=== PATIENT | female | born 1970 | race Caucasian/White ===

== ENCOUNTER 2020-09-17 15:04 | Outpatient (CLI) | payer OTHER, SELFPAY ==
--- NOTE | ~2020-09-17 | MM_ITS ---
EXAMINATION: MM screening [facility] BI w dony HISTORY: Screening TECHNIQUE: Craniocaudal and mediolateral oblique 3-D tomosynthesis images were obtained and synthetic 2-D images were generated. CAD analysis was submitted and interpreted. COMPARISON: Comparison to multiple prior studies sequentially, with oldest reviewed study dated 06/27. BREAST PARENCHYMAL COMPOSITION: There are scattered areas of fibroglandular density. FINDINGS: There is no evidence of suspicious mass, calcification, or architectural distortion to sugg est malignancy in either breast. There has been no suspicious interval change. IMPRESSION: 1. No mammographic evidence of malignancy. 2. Recommend routine screening mammography in one year. BI-RADS Category 1: Negative Reviewed, dictated and finalized at location A. 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
== END 2020-09-17 15:05 | disposition home or self-care (01) ==
LOC: ANHIMG 15:48
PROVIDERS: PCP Obstetrics & Gynecology; Visit Provider Obstetrics & Gynecology
DX: Z12.31 Encounter for screening mammogram for malignant neoplasm of breast (principal)
CPT/HCPCS: 77063; 77067

== ENCOUNTER 2021-10-03 15:47 | Outpatient (CLI) | payer OTHER, SELFPAY ==
--- NOTE | ~2021-10-03 | MM_ITS ---
EXAMINATION: MM screening [facility] BI w dony HISTORY: Screening TECHNIQUE: Craniocaudal and mediolateral oblique 3-D tomosynthesis images were obtained and synthetic 2-D images were generated. CAD analysis was submitted and interpreted. COMPARISON: Comparison to multiple prior studies sequentially, with oldest reviewed study dated 07/27. BREAST PARENCHYMAL COMPOSITION: Breast composed of scattered areas of fibroglandular density FINDINGS: There is no evidence of suspicious mass, calcification, or architectural distortion to sugg est malignancy in either breast. There has been no suspicious interval change. IMPRESSION: 1. No mammographic evidence of malignancy. 2. Recommend routine screening mammography in one year. BI-RADS Category 1: Negative Reviewed, dictated and finalized at location A. 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
== END 2021-10-03 15:48 | disposition home or self-care (01) ==
LOC: ANHIMG 15:49
PROVIDERS: PCP Obstetrics & Gynecology; Visit Provider Family Medicine
DX: Z12.31 Encounter for screening mammogram for malignant neoplasm of breast (principal)
CPT/HCPCS: 77063; 77067

== ENCOUNTER → 2022-10-20 15:33 | Outpatient (CLI) | payer OTHER, SELFPAY ==
--- NOTE | ~2022-10-20 | US_ITS ---
US axilla LT 10/20/2022 15:53 Indication: Palpable left axillary nodule Procedure: High-resolution Limited ultrasound of the left axilla Comparison: No prior studies for comparison. Findings: There is a normal appearing lymph node in the area of palpable concern measuring 1.3 cm wit hin normal fatty hilum. No other discrete solid or cystic masses. Impression: 1: Normal lymph node in the left axilla in the area of palpable concern. Reviewed, dictated and finalized at location B. CAID ELIGIBILITY SPECIALIST Impression: 1: Normal lymph node in the left axilla in the area of palpable concern.
== END ==
PROVIDERS: PCP Family Medicine; Visit Provider Family Medicine
DX: R59.1 Generalized enlarged lymph nodes (principal)
CPT/HCPCS: 76882

== ENCOUNTER 2022-11-14 16:24 | Outpatient (CLI) | payer OTHER, SELFPAY ==
--- NOTE | ~2022-11-14 | MM_ITS ---
EXAMINATION: MM screening [facility] BI w dony HISTORY: Screening TECHNIQUE: Craniocaudal and mediolateral oblique 3-D tomosynthesis images were obtained and synthetic 2-D images were generated. CAD analysis was submitted and interpreted. COMPARISON: Comparison to multiple prior studies sequentially, with oldest reviewed study dated 07/27. BREAST PARENCHYMAL COMPOSITION: There are scattered areas of fibroglandular density. FINDINGS: There is no evidence of suspicious mass, calcification, or architectural distortion to sugg est malignancy in either breast. There has been no suspicious interval change. IMPRESSION: 1. No mammographic evidence of malignancy. 2. Recommend routine screening mammography in one year. BI-RADS Category 1: Negative Reviewed, dictated and finalized at location A.
== END 2022-11-14 16:25 | disposition home or self-care (01) ==
LOC: ANHIMG 16:27
PROVIDERS: PCP Family Medicine; Visit Provider Obstetrics & Gynecology
DX: Z12.31 Encounter for screening mammogram for malignant neoplasm of breast (principal)
CPT/HCPCS: 77063; 77067

== ENCOUNTER 2024-01-03 16:30 | Outpatient (CLI) | payer OTHER, SELFPAY ==
--- NOTE | ~2024-01-03 | MM_ITS ---
EXAMINATION: MM screening [facility] BI w dony HISTORY: Screening mammogram TECHNIQUE: Craniocaudal and mediolateral oblique 3-D tomosynthesis images were obtained and synthetic 2-D images were generated. CAD analysis was submitted and interpreted. COMPARISON: 11/14/2022, 10/03/2021 bilateral screening mammogram examinations BREAST PARENCHYMAL COMPOSITION: There are scattered areas of fibroglandular density. FINDINGS: There is no evidence of suspicious mass, calcification, or architectural distortion to sugg est malignancy in either breast. There has been no suspicious interval change. IMPRESSION: 1. No mammographic evidence of malignancy. 2. Recommend routine screening mammography in one year. BI-RADS Category 1: Negative Reviewed, dictated and finalized at location B.
== END 2024-01-03 16:31 | disposition home or self-care (01) ==
PROVIDERS: PCP Family Medicine; Visit Provider Obstetrics & Gynecology
DX: Z12.31 Encounter for screening mammogram for malignant neoplasm of breast (principal)
CPT/HCPCS: 77063; 77067

== ENCOUNTER 2024-02-16 11:06 | Outpatient (CLI) | payer OTHER, SELFPAY ==
--- NOTE | ~2024-02-16 | XR_ITS ---
XR cervical spine 4-5V DATE: 02/16/2024 11:23 INDICATION: Neck pain TECHNIQUE: Standing AP, open-mouth, lateral and swimmer views COMPARISON: None FINDINGS: Status post anterior and interbody surgical fusion at C5-C7. There is moderately severe degenerative disease and minimal retrolisthesis at C4-5. Bilateral uncover tebral joint spurring at C4-5. C2-3 and C3-4 interspaces appear relatively well preserved. C1 and C2 are normally aligned and the odontoid process is intact. No fracture or dislocation or lock ed facet or prevertebral soft tissue swelling is noted. IMPRESSION: Status post anterior and interbody surgical fusion at C5 and C7 Moderately severe degenerative disc disease, posterior spurring, minimal retrolisthesis and bilateral uncovertebral joint spurring at C4-5 Reviewed, dictated and finalized at location A. IMPRESSION: Status post anterior and interbody surgical fusion at C5 and C7 Moderately severe degenerative disc disease, posterior spurring, minimal retrol isthesis and bilateral uncovertebral joint spurring at C4-5
== END 2024-02-16 11:07 ==
DX: M50.30 Other cervical disc degeneration, unspecified cervical region (principal); Z98.1 Arthrodesis status
CPT/HCPCS: 72050

== ENCOUNTER 2025-01-06 16:13 | Outpatient (CLI) | payer OTHER, SELFPAY ==
--- NOTE | ~2025-01-06 | MM_ITS ---
EXAMINATION: MM screening nadine BI w odny HISTORY: Screening TECHNIQUE: Craniocaudal and mediolateral oblique 3-D tomosynthesis images were obtained and synthetic 2-D images were generated. CAD analysis was submitted and interpreted. COMPARISON: Comparison to multiple prior studies sequentially, with oldest reviewed study dated 10/2018. BREAST PARENCHYMAL COMPOSITION: Not dense: There are scattered areas of fibroglandular density. FINDINGS: There is no evidence of suspicious mass, calcification, or architectural distortion to sugg est malignancy in either breast. There has been no suspicious interval change. IMPRESSION: 1. No mammographic evidence of malignancy. 2. Recommend routine screening mammography in one year. BI-RADS Category 1: Negative Reviewed, dictated and finalized at location A.
--- OUTSIDE RECORDS SUMMARY | 2025-01-06 16:16 | XMS_ITS | Clinical Summary ---
Author Organization [facility] Address [facility] [place] [address] Care Team Providers Care Vascular Ultrasound Technologist Name Role Phone Melba Dover MD Primary Care Provider Allergies Active Allergy Reactions Criticality Noted Date Comments Atorvastatin Myalgias 02/04/2016 Morphine Nausea and Vomiting 10/16/2019 Niacin Rash Low 10/16/2019 Penicillins Other (see comment) 10/16/2019 In childhood Medications multi vitamin/mineral s tablet Take 1 tablet by mouth daily. Active metoprolol tartrate 25 MG tablet Take 0.5 tablets (12.5 mg total) by mouth 2 (two) times daily. Active magnesium oxide 400 (241.3 Mg) MG tablet Take 1 tablet (400 mg total) by mouth as needed. Active Active Problems Problem Noted Date Diagnosed Date Family history of colon cancer in father 023 Overview (12/07/2022): Added automatically from request for surgery [id number] History of colon polyps 12/07/2022 Overview (12/07/2022): Added automatically from request for surgery [id number] Family History Medical History Relation Comments Cancer Father colon Anesthesia problems Mother n/v Diabetes Mother Heart Disease Mother Relation Status Comments Father Mother Social History Tobacco Use Types Packs/Day Years Used Date Smoking Tobacco: Never Smokeless Tobacco: Never Alcohol Use Standard Drinks/Week Comments Yes 4 (1 standard drink = 0.6 oz pur e alcohol) Humiliation, Afraid, Rape, and Kick questionnair e Answer Date Recorded Fear of Current or Ex-Partner Patient declined 0 10/23/2019 Emotionally Abused Patient declined 10/23/2019 Physically Abused Patient declined 10/23/2019 Sexually Abused Patient declined 10/23/2019 Social Connection and Isolation Panel [NHANES] A nswer Date Recorded Frequency of Communication with Friends and Fami ly Patient declined 10/23/2019 Frequency of Social Gatherings with Friends and Family Patient declined 10/23/2019 Attends Orthodoxy Services Patient declined 09/28 Active Member of Clubs or Organizations Patient declined 10/23/2019 Attends Club or Organization Meetings Patient de clined 10/23/2019 Marital Status Patient declined 10/23/2019 Overall Financial Resource Strain (CARDIA) Answe r Date Recorded Difficulty of Paying Living Expenses Not hard at all 10/23/2019 [facility] Occup[facility] ional [facility] - Occupational Stress Questionnaire Answer Date Recorded Feeling of Stress Patient declined 10/23/2019 Exercise Vital Sign Answer Date Recorde d Days of Exercise per Week Patient declined 10/23 Minutes of Exercise per Session Patient declined 10/23/2019 Hunger Vital Sign Answer Date Recorded Worried About Running Out of Food in the Last Ye ar Never true 10/23/2019 Ran Out of Food in the Last Year Never true 10/23/2019 PRAPARE - Transportation Answer Date Re corded Lack of Transportation (Medical) Patient decline d 10/23/2019 Lack of Transportation (Non-Medical) Patient dec lined 10/23/2019 Comments No Sex and Gender Information Value Date Recorded Sex Assigned at Not on file Legal Sex Female 7:28 PM CDT Gender Identity Female 12/19/2021 8:46 AM CDT Sexual Orientation Not on file Last Filed Vital Signs Vital Sign Reading Time Taken Comments Blood Pressure 125/81 01/09/2023 9:57 AM CDT Pulse 49 01/09/2023 9:57 AM CDT Temperature 36.7 C (98 F) 01/09/2023 9:28 AM CDT Respiratory Rate 16 01/09/2023 9:57 AM CDT Oxygen Saturation 96% 01/09/2023 9:57 AM CDT Inhaled Oxygen Concentration - - Weight 77.1 kg (170 lb) 01/09/2023 7:35 AM CDT Height 170.2 cm (5' 7 ) 01/09/2023 7:35 AM CDT Body Mass Index 26.63 01/09/2023 7:35 AM CDT Plan of Treatment Health Maintenance Due Date Last Done Comments Annual Physical 1973 Hepatitis C 1988 DTaP, Tdap and Td Vaccines ( 1 - Tdap) 1989 Hepatitis B Vaccines (1 of 3 - 19+ 3-dose series) 1989 Mammogram Screening 2010 Pneumococcal Vaccine: 50+ Years (1 of 1 - PCV) 2020 Zoster Vaccines (1 of 2) 2020 COVID-19 Vaccine (1 - 2023-2 5 season) 2024 PHQ-2 (Physician Knik) 08/27/2024 Cervical Cancer Screening Pa p Smear (Age 30 to 64) Every 3 Years 07/01/2027 07/01/2024, 05/30/2022, 05/11/2020 Cervical Cancer Screening Pa p with HPV Testing (Age 30 to 64) Every 5 Years 07/01/2029 07/01/2024, 05/30/2022, 05/11/2020 Cervical Cancer Screening wi th HPV 07/01/2029 Colorectal Cancer Screening Colonoscopy (10 Years) 01/09/2033 01/09/2023, 01/09/2023, 10/23/2019 Meningococcal B Vaccine Aged Out No l onger eligible based on patient's age to complete this topic Meningococcal Vaccine Aged Out No uma gael eligible based on patient's age to complete this topic RSV Immunizations Under 20 Months Aged Out No longer eligible b ased on patient's age to complete this topic Medical Devices Implanted Type Area Machine Ii Cutter Device Identifier Shelf Expiration Date Model / Serial / Lot Screw Screw Spine Cervical Description: 6 screws [address] ate Procedures Procedure Name Priority Date/Time Associated Diagnosis Comments VITAMIN D, 25 OH TOTAL Routine 12/16/2024 6:45 AM CDT [facility] WITH LIPID Routine 12/16/2024 6:45 AM CDT [facility] HEMOGLOBIN A1C Routine 12/16/2024 6:45 AM CDT CYTOPATH CERV/VAG THIN LAYER Routine 07/01/2024 5:45 PM ELECTRICAL CONTROLS ENGINEER Routine cervical smear HUMAN PAPILLOMAVIRUS, HIGH-RISK TYPES Routine 07/01/2024 8:00 AM ELECTRICAL CONTROLS ENGINEER COLONOSCOPY Routine 01/09/2023 7:22 AM CDT from Last 3 Months or Most Recently Relevant to Health Maintenance Results * (ABNORMAL) [facility] FAIR WITH LIPID (12/16/2024 6:45 AM CDT) [facility] GLUCOSE 92 70 - 99 MG/DL 12/16/2024 10:09 PM CDT [facility] BUN 20(H) 7 - 18 MG/DL 12/16/2024 10:09 PM CDT [facility] SODIUM S/P/B 138 136 - 145 MMOL/L 12/16/2024 10:09 PM CDT [facility] POTASSIUM S/P/B 4.1 3.5 - 5.1 MMOL/L 12/16/2024 10:09 PM CDT [facility] CHLORIDE S/P/B 104 97 - 115 MMOL/L 12/16/2024 10:09 PM CDT [facility] CO2 22.1 21 - 32 MMOL/L 12/16/2024 10:09 PM CDT [facility] CREATININE S/P/B 1.07(H) 0.55 - 1.02 MG/DL 12/16/2024 10:09 PM CDT [facility] CALCIUM S/P/B 8.8 8.5 - 10.1 MG/DL 12/16/2024 10:09 PM CDT [facility] ALBUMIN S/P/B 4.3 3.4 - 5.0 G/DL 12/16/2024 10:09 PM CDT [facility] TOTAL PROTEIN S/P/B 8.0 6.4 - 8.2 G/DL 12/16/2024 10:09 PM CDT [facility] BILIRUBIN TOTAL S/P/B 0.8 0.2 - 1.2 MG/DL 12/16/2024 10:09 PM [facility] Comment: THIS ASSAY IS NOT RECOMMENDED FOR PATIENTS UNDERGOING TREATMENT WITH ELTROMBOPAG DUE TO THE POTENTIAL FOR FALSELY ELEVATED RESULTS. ALT 20 14 - 55 U/L 12/16/2024 10:09 PM [facility] AST 20 15 - 37 U/L 12/16/2024 10:09 PM [facility] ALKALINE PHOSPHATASE S/P/B 92 50 - 136 U/L 12/16/2024 10:09 PM [facility] A/G RATIO 1.2 1.0 - 2.0 RATIO 12/16/2024 10:09 PM [facility] GFR ESTIMATE 62(L) >90 ML/MIN/1. 73 M2 12/16/2024 10:09 PM [facility] Comment: NOTE: eGFR is not calculated for patients <18 years of age or gender unknown. This is an estimated GFR calculation using the new CKD EPI creatinine equation without race and so does not require a correction factor for race. This estimated GFR should not be used for calculating drug doses. CHOLESTEROL 205(H) <200 MG/DL 12/16/2024 10:09 PM [facility] TRIGLYCERIDES 82 <150 MG/DL 12/16/2024 10:09 PM [facility] HDL 57 >40.0 MG/DL 12/16/2024 10:09 PM [facility] LDL (CALCULATED) 132(H) <100 MG/DL 12/16/2024 10:09 PM [facility] NON HDL CHOLESTEROL 148(H) <130 MG/DL 12/16/2024 10:09 PM [facility] CHOL/HDL RATIO 3.6 0.0 - 4.5 12/16/2024 10:09 PM [facility] VLDL CALCULATION 16 5 - 55 MG/DL 12/16/2024 10:09 PM CDT [facility] LIPID INTERPRETATION 12/16/2024 10:09 PM T [facility] Comment: NIH CONCENSUS REPORT RECOMMENDATIONS: ADULT CHILD LOW RISK: CHOLESTEROL <200 <170 TRIGLYCERIDE <150 --- HDL >=60 --- LDL <100 <110 BORDERLINE: CHOLESTEROL 200-239 170-199 TRIGLYCERIDE 150-199 --- HDL 40-59 --- LDL 100-159 110-129 HIGH RISK: CHOLESTEROL >=240 >=200 TRIGLYCERIDE >=200 --- HDL <40 --- LDL >=160 >=130 TSH 2.320 0.358 - 3.74 uIU/ML 12/16/2024 10:09 PM T [facility] Comment: HIGH DOSES OF BIOTIN MAY INTERFERE WITH THIS TEST RESULT. CORRELATION TO CLINICAL HISTORY AND PRESENTATION RECOMMENDED. WBC 5.96 4.50 - 11.00 x10'3/uL 12/16/2024 8:19 AM CDT [facility] RBC 4.91 4.00 - 5.20 x10'6/uL 12/16/2024 8:19 AM CDT [facility] HGB 14.9 12.0 - 16.0 G/DL 12/16/2024 8:19 AM CDT [facility] HCT 44.2 38.0 - 48.0 % 12/16/2024 8:19 AM CDT [facility] MCV 90.0 80.0 - 100.0 FL 12/16/2024 8:19 AM CDT [facility] MCH 30.3 26.0 - 34.0 PG 12/16/2024 8:19 AM CDT [facility] MCHC 33.7 31.0 - 37.0 G/DL 12/16/2024 8:19 AM CDT [facility] PLT 225 130 - 400 x10'3/uL 12/16/2024 8:19 AM T [facility] 12/16/2024 6:45 AM CDT Vishal Abdul MD LABORATORY Final Result [facility] [address] [place] [address], [facility] [address] [place] [address], [place] [phone] * VITAMIN D, 25 OH TOTAL (12/16/2024 6:45 AM CDT) VITAMIN D 25 HYDROXY S/P/B 36 30 - 100 NG/ML 12/16/2024 3:37 PM CDT [facility] 12/16/2024 6:45 AM CDT Vishal Abdul MD LABORATORY Final Result [facility] [address] [place] [address], [place] [phone] * HEMOGLOBIN A1C (12/16/2024 6:45 AM CDT) Pathologist [facility] HGB A1C 5.6 <5.7 % 12/16/2024 7:02 PM CDT [facility] Comment: ADA GUIDELINES 2010 5.7 TO 6.4% INCREASED RISK OF DIABETES > OR = 6.5% CONSISTENT WITH DIABETES ESTIMATED AVG GLUCOSE 114 mg/dL 12/16/2024 7:02 PM CDT [facility] 12/16/2024 6:45 AM CDT Vishal Abdul MD LABORATORY Final Result [facility] [address] [place] [address], [place] [phone] * Cytopath Cerv/Vag Thin Layer (07/01/2024 5:45 PM ELECTRICAL CONTROLS ENGINEER) THIN PREP PAP [address] [address] Department of Pathology Pathology Report CERVICAL/VAGINAL PAP SMEAR REPORT Name: KATY PIMENTEL Age: 7 1970 (Age: 54) Location: [facility] Sex: F Collected Date: 07/01/2024 Hospital #: [id number] Date Received: 07/03/2024 Date Reported: 07/08/2024 Provider: KARLEE DOVER MD INTERPRETATION CERVICAL/ENDOCERVI TOÑO: SATISFACTORY FOR EVALUATION. NEGATIVE FOR INTRAEPITHELIAL LESION OR MALIGNANCY. ATROPHY. NEGATIVE FOR HIGH RISK HPV. The FDA approved Aptima HPV assay is an in vitro nucleic acid amplification test for the qualitative detection of E6/E7 viral messenger RNA (mRNA) from 14 high-risk types of human papillomavirus (HPV) in cervical specimens. The high-risk HPV types detected by the assay include: 16,18,31,33,35,39, 45,51,52,56,58,59, 66, and 68. Electronically Signed Out By PEDRO Pichardo (ASCP) CLINICAL HISTORY (Z12.4) SCREENING FOR CERVICAL CANCER PAP TEST SCREENING ThinPrep Pap Test with HR HPV testing in patient > 30 years requested. Date of Last Menstrual Period: UNKNOWN Menstrual Status: Regular SPECIMEN SUBMITTED CERVICAL/ENDOCERVI TOÑO Specimen Received:1 Thin Prep Vial, Image Assisted Pap (SMD) Please note: The Pap smear is not a diagnostic test. It is a screening test. Negative results on combined screening (Pap test and HPV-DNA) have a high negative predictive value (99.1-100 percent) for cervical cancer. The pap test is not effective in detecting cervical adenocarcinoma. [facility] 07/01/2024 5:45 PM ELECTRICAL CONTROLS ENGINEER 07/03/2024 5:45 PM ELECTRICAL CONTROLS ENGINEER Comment:CERVICAL/ENDOCERVICA L Karlee Jain MD PATHOLOGY/CYTOLOGY ORDER FENG Final Result [facility] [address] [id number], * HUMAN PAPILLOMAVIRUS, HIGH-RISK TYPES (07/01/2024 8:00 AM ELECTRICAL CONTROLS ENGINEER) SPEC DESCRIPTION ENDOCERVIX 07/03/2024 6:52 PM ELECTRICAL CONTROLS ENGINEER [facility] HPV DNA HIGH RISK NEGATIVE NEGATIVE 07/05/2024 1:32 AM ELECTRICAL CONTROLS ENGINEER [facility] Comment:SEE CYTOLOGY REPORT 07/01/2024 8:00 AM ELECTRICAL CONTROLS ENGINEER Karlee Jain MD PATHOLOGY/CYTOLOGY ORDER FENG Final Result Performing Organization Address City/[facility]/ZIP Co de Phone Number [facility] [address] [id number], [place] [phone] from Last 3 Months or Most Recently Relevant to Health Maintenance Insurance [employer] Advance Directives Documents on File Type Date Recorded 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
--- OUTSIDE RECORDS SUMMARY | 2025-01-06 16:16 | XMS_ITS | Patient Health Record ---
Author Organization [facility] Address [address] [place] [address] Care Team Providers Care Dairy Grazer Name Role Phone Melba Jacinto MD Primary Care Provider Unavail able SIMON CARBONE, ALEXUS Unavailable REASON FOR REFERRAL No Information PLAN OF TREATMENT No Information Insurance Providers Payer Name Payer Address Payer Phone Subscriber Number Group Number Insured Name Patient Relationship to Insured Coverage Start Date Coverage End Date [facility] [employer] [address] [address] [place] [address] [phone] [id number] Mariza Maurice Self - patient is the insured
== END 2025-01-06 16:14 | disposition home or self-care (01) ==
LOC: ANHIMG 16:14
PROVIDERS: Visit Provider Obstetrics & Gynecology
DX: Z12.31 Encounter for screening mammogram for malignant neoplasm of breast (principal)
CPT/HCPCS: 77063; 77067